=== PATIENT | female | born 1995 | race American Indian/Alaskan Native ===

== ENCOUNTER 2019-03-29 21:07 | Emergency (ER) | payer SELFPAY ==
[2019-03-29 21:16] VITALS: BP 126/75
--- NOTE | 2019-03-29 23:23 | Emergency Department Report ---
Chief Complaint: Urogenital-Female Stated Complaint: VANGINAL DISCHARGE - HPI History of Present Illness: th ept is a 23 y/o F p/w a cc of vag d/c x 2 weeks. Pt states d/c is yellow in color. denies hematuria or dysuria. LMP WNL - Exam Vital Signs: Vital Signs 03/29/19 21:14 Temperature 99.1 F Pulse Rate 89 Respiratory 18 Rate Blood Pressure 126/75 O2 Sat by Pulse 98 Oximetry MSE screening note: Focused history and physical exam performed. Due to findings the following was ordered: pelvic exam/wet prep/gc/chlam, u/a [facility] [place] ED Disposition for MSE Condition: Stable
[2019-03-30 02:02] LABS: Bacteria,Urine 1+ /HPF (Negative); Bilirubin,Urine NEG (Negative); Blood,Urine SM (Negative); Color,Urine Yellow (Yellow); Mucus,Urine 1+ /HPF; Protein,Urine <15 mg/dL mg/dL (Negative); Urobilinogen,Urine < 2.0 mg/dL (<2.0)
[2019-03-30 02:08] LABS: HCG Qualitative,Urine Negative (Negative)
--- NOTE | 2019-03-30 03:33 | Emergency Department Report ---
ED Female HPI - General Chief complaint: Urogenital-Female Stated complaint: VANGINAL DISCHARGE Source: patient Mode of arrival: Ambulatory Limitations: No Limitations - History of Present Illness Initial comments: Patient is a A1 23-year-old -[place] female with no past medical history who presents to the ED with a combination of acute onset persistent vaginal discharge with malodorous smell and urinary frequency and urgency for the last 2 weeks. Patient denies dysuria, abdominal pain, dizziness, fever, chills, cough, nausea and vomiting low back pain and vaginal bleeding. MD Complaint: vaginal discharge, other (urinary urgency and frequency) -: Sudden, week(s) (2) Location: other (vaginal) Radiation: non-radiating Severity: moderate Severity scale (0 -10): 4 Quality: dull Consistency: constant Improves with: none Worsens with: none Are you Now?: No Last Menstrual Period: 02/26/19 EDC: 12/03/19 Associated Symptoms: denies other symptoms, vaginal discharge. denies: vaginal bleeding, abdominal pain, nausea/vomiting, fever/chills, headaches, dysuria, hematuria, rash, seizure, shortness of breath, syncope, weakness, other - Related Data Sexually active: No : 2 Para: 1 A: 1 Previous Rx's Medication Instructions Recorded Last Taken Type Fluconazole [Diflucan TAB] 150 mg PO ONCE #2 tablet 03/30/19 Unknown Rx Promethazine [Phenergan] 25 mg PO Q6HR PRN #20 tab 03/30/19 Unknown Rx cephALEXin [Keflex] 500 mg PO Q8HR #30 cap 03/30/19 Unknown Rx metroNIDAZOLE [Flagyl] 500 mg PO Q12HR #14 tab 03/30/19 Unknown Rx Allergies Allergy/AdvReac Type Severity Reaction Status Date / Time No Known Allergies Allergy Unverified 03/29/19 23:22 ED Review of Systems ROS: Stated complaint: VANGINAL DISCHARGE Other details as noted in HPI Constitutional: denies: chills, fever Eyes: denies: eye pain, eye discharge, vision change ENT: denies: ear pain, throat pain Respiratory: denies: cough, shortness of breath, wheezing Cardiovascular: denies: chest pain, palpitations Endocrine: no symptoms reported Gastrointestinal: denies: abdominal pain, nausea, diarrhea Genitourinary: urgency, dysuria, discharge Musculoskeletal: denies: back pain, joint swelling, arthralgia Skin: denies: rash, lesions Neurological: denies: headache, weakness, paresthesias Psychiatric: denies: anxiety, depression Hematological/Lymphatic: denies: easy bleeding, easy bruising ED Past Medical Hx - Past Medical History Previous Medical History?: No - Surgical History Past Surgical History?: No - Social History Smoking Status: Never Smoker Substance Use Type: None - Medications Home Medications: Home Medications Medication Instructions Recorded Confirmed Last Taken Type Fluconazole [Diflucan TAB] 150 mg PO ONCE #2 tablet 03/30/19 Unknown Rx Promethazine [Phenergan] 25 mg PO Q6HR PRN #20 tab 03/30/19 Unknown Rx cephALEXin [Keflex] 500 mg PO Q8HR #30 cap 03/30/19 Unknown Rx metroNIDAZOLE [Flagyl] 500 mg PO Q12HR #14 tab 03/30/19 Unknown Rx ED Physical Exam - General Limitations: No Limitations General appearance: alert, in no apparent distress - Head Head exam: Present: atraumatic, normocephalic, normal inspection - Eye Eye exam: Present: normal appearance, PERRL, EOMI Pupils: Present: normal accommodation - ENT ENT exam: Present: normal exam, normal orophraynx, mucous membranes moist, TM's normal bilaterally, normal external ear exam - Neck Neck exam: Present: normal inspection, full ROM - Respiratory Respiratory exam: Present: normal lung sounds bilaterally. Absent: respiratory distress, wheezes, chest wall tenderness, accessory muscle use, decreased breath sounds, prolonged expiratory - Cardiovascular Cardiovascular Exam: Present: regular rate, normal rhythm, normal heart sounds. Absent: systolic murmur, diastolic murmur, rubs, gallop - GI/Abdominal GI/Abdominal exam: Present: soft, normal bowel sounds. Absent: tenderness, hyperactive bowel sounds - Bi-manual exam: Present: other (pelvic exam before, patient declined) - Extremities Exam Extremities exam: Present: normal inspection, full ROM, normal capillary refill - Back Exam Back exam: Present: normal inspection, full ROM. Absent: tenderness, CVA tenderness (R), CVA tenderness (L), muscle spasm, paraspinal tenderness, vertebral tenderness - Neurological Exam Neurological exam: Present: alert, oriented X3, CN II-XII intact, normal gait, reflexes normal - Psychiatric Psychiatric exam: Present: normal affect, normal mood - Skin Skin exam: Present: warm, dry, intact, normal color. Absent: rash ED Course Vital Signs 03/29/19 21:14 Temperature 99.1 F Pulse Rate 89 Respiratory 18 Rate Blood Pressure 126/75 O2 Sat by Pulse 98 Oximetry ED Medical Decision Making - Medical Decision Making This is a A0 female who presented to the ED with persistent vaginal discharge and urinary frequency and urgency for 2 weeks. In the ED, patient is alert and oriented 3 and is not in distress. Urinalysis shows significant urinary tract infection with vaginal yeast in urine. Wet prep shows Trichomonas and Gardnerella vaginalis. Patient was treated in the ED with Rocephin, Flagyl and Zofran. Patient also received Diflucan oral tablet in the ED initially. On reevaluation, patient felt better and was discharged home on medications including antibiotics and advised to follow up with [facility] for STD testing and reevaluation. Patient was also advised to return to the ED immediately if symptoms get worse. - Differential Diagnosis STD; UTI; Trichomonas; Bacterial vaginosis; Ladonna vaginitis Critical care attestation.: If time is entered above; I have spent that time in minutes in the direct care of this critically ill patient, excluding procedure time. ED Disposition Clinical Impression: Acute urinary tract infection, Trichomonas vaginalis infection, Bacterial vaginosis, Candidal vaginitis Disposition: - TO HOME OR SELFCARE Is pt being admited?: No Does the pt Need Aspirin: No Condition: Stable Instructions: Bacterial Vaginosis (ED), Trichomoniasis (ED), Urinary Tract Infection in Women (ED), Vaginitis (ED), Sexually Transmitted Diseases (ED) Additional Instructions: Take medications with food, drink plenty of fluids and follow up with your primary care physician or [facility] for further evaluation especially evaluation for STDs. Return to the ED immediately if symptoms get worse. Observe safer sexual practices Prescriptions: Fluconazole [Diflucan TAB] 150 mg PO ONCE #2 tablet metroNIDAZOLE [Flagyl] 500 mg PO Q12HR #14 tab cephALEXin [Keflex] 500 mg PO Q8HR #30 cap Promethazine [Phenergan] 25 mg PO Q6HR PRN #20 tab PRN Reason: Nausea Referrals: [facility] Dep[facility] [Outside] - 3-5 Days Forms: STI Treatment and Prevention Time of Disposition: 03:31 Print Language: PORTUGUESE
[2019-03-30] MEDS ORDERED: metroNIDAZOLE 500 MG TAB PO ONE (03:35)
[2019-03-30] MEDS ORDERED: ONDANSETRON 4 MG ODT TAB PO ONE (03:36)
[2019-03-30] MEDS ORDERED: LIDOCAINE-MPF (1%) 10 MG/1 ML VIAL 5 ML INFILTRATI ONE (03:36)
[2019-03-30] MEDS ORDERED: FLUCONAZOLE 200 MG TAB PO ONE (04:00)
== END 2019-03-30 05:04 | disposition home or self-care (01) ==
LOC: ED 21:07
DX: N39.0 Urinary tract infection, site not specified (principal); A59.01 Trichomonal vulvovaginitis; B37.3 Candidiasis of vulva and vagina
CPT/HCPCS: 81001; 81025; 87086; 87210; 96372; 99283; J0696; Q0162